=== PATIENT | male | born 1970 | race Two or more races ===

== ENCOUNTER 2019-06-15 06:30 | Day surgery (SDC) | payer OTHER ==
[~2019-06-15 06:30] MED LIST: ATORVASTATIN CA10 MG PO; CLONAZEPAM1 MG PO; DOCUSATE SODIU100 MG PO; MEFORMIN PO; METROPOLOL PO; NEUROTIN PO; OMEPRAZOLE20 MG PO; PERCOCET 5/3251 TAB PO
== END 2019-06-15 10:55 | disposition home or self-care (01) ==
LOC: AMB-ENDOS 06:30
DX: D12.2 Benign neoplasm of ascending colon (principal); D12.3 Benign neoplasm of transverse colon; D12.5 Benign neoplasm of sigmoid colon